=== PATIENT | female | born 1940 | race African-American/Black ===

== ENCOUNTER 2018-02-11 06:24 | Day surgery (SDC) | payer OTHER ==
[2018-02-10 14:28] VITALS: BMI 35.0
[~2018-02-11 06:24] MED LIST: ceFAZolin SODIUM 1 GM VIAL IVPB ONE
[2018-02-11] MEDS ORDERED: MIDAZOLAM HCL 2 MG/2 ML SINGLE DOSE VIAL ONE (07:31)
[2018-02-11] MEDS ORDERED: BUPIVACAINE HCL/PF 0.5% (5MG/ML) 10 ML VIAL ONE (07:31)
[2018-02-11] MEDS ORDERED: LIDOCAINE HCL 1%, 10 MG/ML (20ML VIAL) ONE (07:31)
[2018-02-11] MEDS ORDERED: SUCCINYLCHOLINE CHLORIDE 200 MG/10 ML VIAL ONE (07:31)
[2018-02-11] MEDS ORDERED: PROPOFOL 20 ML ONE ×2 (07:31→07:38)
[2018-02-11] MEDS ORDERED: LIDOCAINE HCL/PF 2% SDV 5ML VIAL ONE (07:33)
[2018-02-11] MEDS ORDERED: SODIUM CHLORIDE 0.9% P/F 10 ML VIAL IJ ONE (07:35)
--- NOTE | 2018-02-11 08:19 | HP ---
Satellite [facility] - Chief Complaint Chief Complaint: left hand mass History of Present Illness: left hand mass History Source: Patient Limitations to Obtaining History: No Limitations - Past Medical History Allergies/Adverse Reactions: Allergies Allergy/AdvReac Type Severity Reaction Status Date / Time Penicillins Allergy Itching Verified 02/10/18 14:21 - Current Medications Current Medications: Home Medications Medication Instructions Recorded Aspirin [ASA -] 81 mg PO HS 05/11/12 Glimepiride [Amaryl] 2 mg PO BID 05/11/12 Olmesartan/Hydrochlorothiazide 1 each PO DAILY 05/11/12 [Benicar Hct 20-12.5 mg Tablet] Ergocalciferol (Vitamin D2) 50,000 unit PO WEEKLY 02/10/18 [Drisdol] Nortriptyline HCl [Pamelor -] 50 mg PO HS 02/10/18 Rosuvastatin [Crestor -] 5 mg PO HS 02/10/18 Satellite Physical Exam - Physical Examination Vital Signs: Vital Signs Period Temp Pulse Resp BP Sys/Madsen Pulse Ox Last 24 Hr 97.4 F 76 18 123/66 100 General Appearance: Well Nourished ENT: Clear Lung: Clear to auscultation Heart: Regular rate & rhythm, Rubs Breasts: Soft Abdomen: Soft Extremities: No edema Satellite Impression/Plan - Impression/Plan Impression: left hand mass Operative Procedure: excision left hand mass Date to be Performed: 02/11/18
[2018-02-11] MEDS ORDERED: DEXAMETHASONE SOD PHOSPHATE 4 MG/1 ML VIAL ONE (08:20)
[2018-02-11] MEDS ORDERED: ceFAZolin SODIUM 1 GM VIAL IVPB ONE (08:40)
[2018-02-11] MEDS ORDERED: LIDOCAINE HCL 1%, 10 MG/ML (50 mL VIAL) IJ ONE (08:45)
[2018-02-11] MEDS ORDERED: BUPIVACAINE HCL/PF (5 MG/ML) 30 ML VIAL IJ ONE (08:45)
[2018-02-11] MEDS ORDERED: GLYCOPYRROLATE 0.2 MG/1 ML VIAL ONE (09:13)
[2018-02-11] MEDS ORDERED: KETOROLAC TROMETHAMINE 30 MG/1 ML VIAL ONE (09:21)
--- NOTE | 2018-02-11 09:25 | OP ---
Operative Note - Note: Operative Date: 02/11/18 (rajinder) Pre-Operative Diagnosis: left wrist mass Operation: left wrist mass excision Post-Operative Diagnosis: Same as Pre-op Surgeon: Luther Jimenez Anesthesiologist/CONTROL CLERK AUDITING: Denys Fleming Anesthesia: Local, MAC Specimens Removed: mass Estimated Blood Loss (mls): 0 (tourniquet) Operative Report Dictated: Yes
--- NOTE | 2018-02-11 10:17 | OP ---
DATE OF OPERATION: 02/11/2018 PREOPERATIVE DIAGNOSIS: Left hand mass. POSTOPERATIVE DIAGNOSIS: Left hand mass, lipoma. PROCEDURE: Excision mass, left hand. SURGEON: Lina Weber MD SUPERVISOR TRANSCRIBING OPERATORS: Denys Fleming CRNA ANESTHESIOLOGIST: Yosi Bird MD ANESTHESIA: LMA anesthesia with local injection of 15 mL of 0.5% Marcaine with 1% lidocaine mixed. DRAINS: None. COMPLICATIONS: None. SPECIMENS: Mass/lipoma, left hand. BLOOD LOSS: None. BLOOD GIVEN: None. FLUID REPLACEMENT: PlasmaLyte, 500 mL. INDICATIONS: This patient is a 77-year-old female with a preoperative diagnosis of a left hand mass, likely lipoma. After understanding the potential risks, complications, alternatives, and benefits of surgery versus nonsurgical treatment, the patient elected to undergo this procedure. Among other potential risks, she understands there is a risk of temporary or permanent paresthesias. DESCRIPTION OF PROCEDURE: The patient was brought to the operating room. Peripheral IV was placed, IV sedation was given. One gram of IV Ancef was given. LMA anesthesia was induced. Left upper extremity was prepped and draped in sterile fashion. A longitudinal incision was marked out over the 1st dorsal web space with a marking pen, and 15 mL of 0.5% Marcaine and 1% lidocaine mix injected in and around the surgical incision. The area was elevated and exsanguinated with an Esmarch bandage, and the tourniquet inflated to 250mmHg. The entire case was done under 3.8 loupe magnification. A No. 15 scalpel blade was used to cut down through the skin. Subcutaneous hemostasis was achieved with the bipolar cautery. Dissection done with the curved Littler scissors circumferentially around a well-defined mass with a very thin capsule, seemed to be a multiloculated lipoma. Great care was taken to preserve all crossing neurovascular structures. An Allis clamp was placed on the mass for gentle retraction and tension, and I was then able to, as mentioned, circumferentially dissect around it, it from all its surrounding soft tissue connections. It was passed off the field in piecemeal fashion. The area was copiously irrigated and washed out. There was a little more of this lipoma extending as a tongue more dorsal and superficial towards the thumb metacarpal. This was excised, as well. The area was copiously irrigated and washed out. I then could not see or feel any other abnormal tissue. The area was well decompressed. The area was irrigated and washed out again. Closure was done with 4-0 undyed Vicryl in the deep dermal layer, and final skin reapproximation was done with a running subcuticular 4-0 Biosyn stitch. The area was then washed and dried, covered with Steri-Strips, 4x4 gauze, fluffs between the fingers, Webril, and Coban. The total tourniquet time was 32 minutes. There were no complications during the case. The patient tolerated the procedure quite well and was brought to the ambulatory recovery room in stable condition. LINA WEBER M.D. [id number]
[2018-02-11 10:44] VITALS: TEMP 97.8
[2018-02-11] MEDS ORDERED: ONDANSETRON 4 MG/2 ML VIAL IVPUSH PRN (11:03)
[2018-02-11] MEDS ORDERED: oxyCODONE HCL 5 MG TABLET PO PRN (11:03)
[2018-02-11] MEDS ORDERED: LACTATED RINGERS SOLUTION 1,000 ML IV SCH (11:15)
[2018-02-11 14:45] VITALS: BP 157/67; PULSE 92
--- NOTE | 2018-02-13 18:33 | PATH ---
Surgical Pathology Report Patient Name: EDY CEVALLOS [facility]. Rec. #: [id number] /Age/Gender: 1940 (Age: 77) / F Account: [id number] Location: [facility] SURGICAL Taken: 02/11/2018 Received: 02/11/2018 Reported: 02/13/2018 Physicians: Luther Jimenez M.D. Specimen(s) Received LEFT HAND MASS Clinical History Mass left hand Final Diagnosis HAND MASS, LEFT, EXCISION: MATURE FIBROADIPOSE TISSUE WITH FOCAL MYXOID CHANGE CONSISTENT WITH LIPOMA. Electronically Signed Cyndy Mcgee M.D. Gross Description Received in formalin labeled "left hand mass," is a 5.4 x 4.4 x 1.2 cm aggregate of abundant fragments of irizarry-yellow, lobulated soft tissue. Sectioning reveals homogeneous yellow, smooth fat. Lead Installer sections are submitted in 3 cassettes. /02/12/2018 saudi/02/12/2018
== END 2018-02-11 14:48 | disposition home or self-care (01) ==
LOC: JASU-SURG 06:24
PROVIDERS: ATTEND Orthopaedic Surgery
PROC: 0JBK0ZZ Excision of Left Hand Subcutaneous Tissue and Fascia, Open Approach (ICD-10-PCS; principal; 2018-02-11 08:00)
DX: D17.22 Benign lipomatous neoplasm of skin and subcutaneous tissue of left arm (principal)
CPT/HCPCS: 82962; 88304-TC; 94760